=== PATIENT | male | born 1990 | race Caucasian/White ===

== ENCOUNTER 2018-11-23 22:50 | Emergency (ER) | payer SELFPAY ==
[~2018-11-23] VITALS: Ht 180.3 cm; Wt 73.0 kg
[2018-11-24] MEDS ORDERED: LORAZEPAM 1MG TABLET PO ONE (00:15)
[2018-11-24 01:38] VITALS: BP 132/74
== END 2018-11-24 01:46 | disposition home or self-care (01) ==
LOC: ER 22:50
DX: F41.9 Anxiety disorder, unspecified (principal); F19.10 Other psychoactive substance abuse, uncomplicated; F12.10 Cannabis abuse, uncomplicated; F15.10 Other stimulant abuse, uncomplicated
CPT/HCPCS: 99284; Z7610